=== PATIENT | female | born 1980 | race Asian ===

== ENCOUNTER 2025-02-13 06:14 | Outpatient (REF) | payer OTHER, SELFPAY ==
--- OUTSIDE RECORDS SUMMARY | 2025-02-13 06:19 | XMS_ITS | Clinical Summary ---
Author Organization [facility] [address] [place] [address] [place] [phone] Phone Care Team Providers Care Deli Clerk Name Role Phone Faustino Navarro MD Primary Care Provider Medications cyclobenzaprin e (FLEXERIL) 10 mg tablet Take 0.5-1 Tablets by mouth 2 times daily as needed for Muscle spasms. Medication may cause drowsiness, do not drive/operate machinery while taking 4 Active cholecalcifero l (VITAMIN D-3) 50 mcg (2,000 unit) tablet Take 1 Tablet by mouth daily. 4 Active hydrOXYzine HCL (ATARAX) 10 mg tablet Take 1 tablet (10 mg total) by mouth every 6 (six) hours if needed for itching. 90 tablet 1 5 Active vitamin () iron fum-folic acid 28-0.8 mg per tablet Take 1 tablet by mouth 1 (one) time each day. 90 tablet 2 5 Active LORazepam (ATIVAN) 0.5 mg tablet Take 1 tablet (0.5 mg total) by mouth every 8 (eight) hours if needed for anxiety. for anxiety Max Daily Amount: 1.5 mg 20 tablet 5 Active hydrOXYzine HCL (ATARAX) 10 mg tablet Take 0.5 Tablets by mouth daily as needed for Itching. 4 02/05/20 25 Discontinu ed(Reorder ) PNV no.95/ferrous fum/folic ac ( ORAL) VIT-FE FUMARATE-FA ( VITAMINS) 28-0.8 MG TAB Take 1 Tablet by mouth daily. 4 02/05/20 25 Discontinu ed(Alterna te therapy) LORazepam (ATIVAN) 0.5 mg tablet Take 1 Tablet by mouth every 8 hours as needed for Anxiety. 4 02/05/20 25 Discontinu ed(Reorder ) cetirizine (ZyrTEC) 10 mg tablet Take 1 Tablet by mouth daily. 3 02/05/20 25 Discontinu ed(Therapy completed) Active Problems Problem Noted Date Diagnosed Date Dermatitis 02/04/2025 Mixed hyperlipidemia 02/04/2025 Anxiety 12/26/2022 Encounters Date Type Department Care Team Description 02/04/2025 8:30 AM EDT Office Visit Adult Medicine [address] [phone] Kaur Sewell PA Adult general medical examination (Primary Dx); Encounter for screening mammogram for malignant neoplasm of breast; Anxiety; Mixed hyperlipidemia; Dermatitis from Last 3 Months Immunizations Name Administration Dates Next Due Hepatitis A Adult (Havrix; V aqta) 19yo and older 02/05/2015,10/30/2009 Pfizer SARS-CoV-2 COVID-19, mRNA, LNP-S, preservative free 09/17/2021,11/26/2020,11/03/2020 Tdap Tetanus diptheria acell ular pertussis (Boostrix; Adacel) 7yo and older 10/30/2012 Typhoid VICPS (Typhim Vi) 2yo and older 02/10/20 15 Yellow Fever (YF-VAX) 9mo and older 02/09/2015 Surgical History Surgery Date Site/Laterality Comments OTHER SURGICAL HISTORY PROCEDURE: DENIES PREVIOUS SURGERY Family History Medical History Relation Name Comments Hypertension Father Alzheimer's disease Maternal Grandmother Breast cancer Neg Hx Colon cancer Neg Hx Ovarian cancer Neg Hx Uterine cancer Neg Hx Relation Name Status Comments Father Alive HTN Maternal Grandfather Maternal Grandmother Mother Alive healthy, [facility] Paternal Grandfather Paternal Grandmother Social History Tobacco Use Types Packs/Day Years Used Date Smoking Tobacco: Never Smokeless Tobacco: Never Alcohol Use Standard Drinks/Week Comments Not Currently 0 (1 standard drink = 0.6 oz pur e alcohol) Housing Instability Answer Date Recorde d Are you worried that in the next 2 months you may not have stable housing? No 01/28/2025 Food Access & Nutrition Answer Date Rec orded Do you have access to a vari ety of food including fruits and vegetables? Yes 01/28/2025 Health Literacy Answer Date Recorded How often do you need to hav e someone help you when you read instructions, pamphlets, or other written material from your doctor or pharmacy? Never 01/28/2025 Caregiver: How often do you need to have someone help you when you read instructions, pamphlets, or other written material from your doctor or pharmacy? Not on file 01/28/2025 Financial Risk Answer Date Recorded How hard is it for you to pa y for the very basics like food, housing, medical care, and air conditioning / heating? Not very hard 01/28/2025 Transportation Answer Date Recorded Has the lack of transportati on kept you from meetings, work, or from getting things needed for daily living? No Has the lack of transportati on kept you from medical appointments or from getting medications? No 01/28/2025 Social Isolation Answer Date Recorded How often do you feel lonely or isolated from th ose around you? Never 01/28/2025 Food Risk Answer Date Recorded Within the past 12 months we worried whether our food would run out before we got money to buy more. Never true 01/28/2025 Within the past 12 months th e food we bought just didn't last and we didn't have money to get more. Never true 01/28/2025 Dependent Care Answer Date Recorded Do you need help finding or paying for care for your loved ones. For example, children's ministries director or elderly care for an older adult? No 01/28/2025 Education Answer Date Recorded Do you think completing more education or training, like finishing a GED, going to college, or learning a trade, would be helpful for you? N/A 01/28/2025 Employment and Income Answer Date Recor ded During the last four weeks, have you been actively looking for work? No 01/28/2025 Living Situation Answer Date Recorded What is your living situation? 0 01/28/2025 Comments Unknown Sex and Gender Information Value Date Recorded Sex Assigned at Not on file Legal Sex Female 1:43 AM EST Gender Identity Not on file Sexual Orientation Not on file Obstetrics History Last Filed Vital Signs Vital Sign Reading Time Taken Comments Blood Pressure 102/73 02/04/2025 8:34 AM EDT Pulse 80 02/04/2025 8:34 AM EDT Temperature 36.6 ??C (97.9 ??F) 02/04/2025 8:34 AM ED T Respiratory Rate 16 02/04/2025 8:34 AM EDT Oxygen Saturation - - Inhaled Oxygen Concentration - - Weight 53.1 kg (117 lb) 02/04/2025 8:34 AM EDT Height 152.4 cm (5') 02/04/2025 8:34 AM EDT Body Mass Index 22.85 02/04/2025 8:34 AM EDT Plan of Treatment Upcoming Encounters Date Type Department Care Team (Late st Contact Info) Description 02/09/2026 8:30 AM EDT Office Visit Adult Medicine [facility] [address] [place] [phone] Kaur Sewell PA [address] [place] [phone] Health Maintenance Due Date Last Done Comments Breast Cancer Screening 1981 Hepatitis B Vaccines (1 of 3 - 19+ 3-dose series) 2000 COVID-19 Vaccine ( season) 2024 10/05/2023, 01/30/2023, 09/17/2021, Additional history exists Cervical Cancer Screening: HPV 08/08/2024 08/08/2019 Influenza Vaccine (Season Ended) 2025 05/27/2015, 06/24/2013 Depression Screening 01/28/2026 01/28/2025 Social Influencers of Health Screening 01/28/2026 01/28/2025 Cholesterol Screening (Lipid Panel) 01/28/2029 01/29/2024 DTaP,Tdap,and Td Vaccines (4 - Td or Tdap) 08/01/2033 08/01/2023, 07/03/2013, 10/30/2012 Varicella Vaccines Aged Out 10/21/2008, 09/01/2008 No longer eligible based on patient's age to complete this topic Hepatitis A Vaccines Aged Out 02/05/2015, 10/30/19 10 No longer eligible based on patient's age to complete this topic HIB Vaccines Aged Out No longer eligi ble based on patient's age to complete this topic HIV Screening Discontinued HPV Vaccines Aged Out No longer eligi ble based on patient's age to complete this topic Hepatitis C Screening Discontinued IPV Vaccines Aged Out No longer eligi ble based on patient's age to complete this topic MMR Vaccines Aged Out No longer eligi ble based on patient's age to complete this topic Meningococcal ACWY Vaccine Aged Out N o longer eligible based on patient's age to complete this topic Meningococcal B Vaccine Aged Out No l onger eligible based on patient's age to complete this topic Pneumococcal Vaccine: Pediatrics (0 to 5 Years) and At-Risk Patients (6 to 64 Years) Aged Out No longer eligible based on patient's age to complete this topic RSV Immunization Patients Under 20 months Aged Out No longer eligible based on patient's age to complete this topic Procedures Procedure Name Priority Date/Time Associated Diagnosis Comments LIPID PANEL Routine 01/29/2024 HPV Routine 08/08/2019 from Last 3 Months or Most Recently Relevant to Health Maintenance Results * (ABNORMAL) Lipid panel (01/29/2024) LDL/HDL Ratio 4 0 - 4 Triglycerides 81 0 - 150 mg/dL Cholesterol 224(A) 0 - 200 mg/dL HDL 65 >=40 mg/dL LDL Cholesterol 143(A) 0 - 100 mg/dL Blood Venous blood specimen / Unknown Historical Provider LAB BLOOD ORDERABLES Vanessa l Result * Cervical Cancer Screening: HPV (08/08/2019) Pathologist Count includes the [facility] Cervical Cancer Screening: HPV abstracted, negative Historical Provider HEALTH MAINTENANCE Final Result from Last 3 Months or Most Recently Relevant to Health Maintenance Insurance [employer] [facility] Care Teams Deli Clerk Relationship Specialty Start Date End Date Faustino Navarro MD [address] [place] [address] PCP - General Internal Medicine 03/07/22
[2025-02-13 06:35] LABS: MANUAL DIFF FLAG NO
[2025-02-13 07:54] LABS: Basophils Percent Auto 0.3 % (0-2); Eosinophils Absolute Auto 0.1 X10*3/uL (0.0-0.4); Eosinophils Percent Auto 0.9 % (0-4); Hematocrit 36.3 % (37.0-47.0); Hemoglobin 11.9 g/dl (12.0-16.0); Imm Gran Abs Auto 0.03 X10*3/uL (0.00-0.03); Imm Gran Pct Auto 0.4 % (0.0-0.4); Lymphocytes Absolute Auto 1.7 X10*3/uL (1.2-4.9); Lymphocytes Percent Auto 21.3 % (20-40); Mean Corpuscular HGB Conc 32.8 g/dl (31.0-35.0); Mean Corpuscular Hemoglobin 31.1 pg (27.0-33.0); Mean Corpuscular Volume 94.8 fL (80.0-98.0); Mean Platelet Volume 8.4 fL (9.4-12.3); Monocytes Absolute Auto 0.5 X10*3/uL (0.1-1.2); Monocytes Percent Auto 6.1 % (2-11); Neutrophils Absolute Auto 5.7 x10*3/uL (2.0-8.3); Platelet Count 297 X10*3/uL (160-400); Red Blood Count 3.83 X10*6/uL (4.20-5.50); Red Cell Distribution Width 13.1 % (11.0-16.0)
[2025-02-13 09:08] LABS: Alanine Aminotransferase 10 U/L (0-31); Albumin Level 3.8 g/dL (3.5-5.0); Alkaline Phosphatase 53 U/L (39-117); Anion Gap 10 (12-20); Aspartate Amino Transferase 17 U/L (5-31); Bilirubin Total 0.2 mg/dL (0.0-1.0); Blood Urea Nitrogen 16 mg/dL (9-16); Carbon Dioxide 25 mmol/L (22-29); Chloride 109 mmol/L (96-108); Cholesterol 193 mg/dL (<200); Estimated Glomerular Filt Rate > 60; Glucose Random 89 mg/dL (60-115); HDL Cholesterol 53 mg/dL (>40); LDL Cholesterol Calculated 130 mg/dL (<100); Potassium 4.4 mmol/L (3.3-5.1); Sodium 140 mmol/L (135-145); Total Protein 6.7 g/dL (6.5-8.0); Triglycerides 53 mg/dL (<150)
[2025-02-13 11:42] LABS: Reflex LDLD? No
== END 2025-02-13 06:15 | disposition home or self-care (01) ==
LOC: HO.LAB 06:14
PROVIDERS: PCP Physician Assistant; Visit Provider Physician Assistant
DX: Z00.00 Encounter for general adult medical examination without abnormal findings (principal); E78.2 Mixed hyperlipidemia
CPT/HCPCS: 36415; 80053; 80061; 85025

== ENCOUNTER 2025-02-28 12:20 | Outpatient (REF) | payer OTHER, SELFPAY ==
[2025-02-28 12:32] LABS: MANUAL DIFF FLAG NO
--- OUTSIDE RECORDS SUMMARY | 2025-02-28 12:57 | XMS_ITS | Clinical Summary ---
Author Organization [facility] [address] [place] [address] [place] [phone] Phone Care Team Providers Care Fence Repairman Name Role Phone Faustino Navarro MD Primary [...] 1 Tablet by mouth daily. 4 02/05/20 Discontinu ed(Alterna te therapy) LORazepam (ATIVAN) 0.5 mg tablet Take 1 Tablet by mouth every 8 hours as needed for Anxiety. 4 02/05/20 Discontinu ed(Reorder ) cetirizine (ZyrTEC) 10 mg tablet Take 1 Tablet by mouth daily. 3 02/05/20 Discontinu ed(Therapy completed) Active Problems Problem Noted Date Diagnosed Date Dermatitis 02/04/2025 Mixed hyperlipidemia 02/04/2025 Anxiety 12/26/2022 Encounters Date Type Department Care Team Description 02/21/2025 Telephone Adult Medicine [address] [phone] Magaly Noyola MA lab orders 02/04/2025 8:30 AM EDT Office Visit Adult Medicine [address] [phone] Kaur Sewell PA Adult general medical examination (Primary Dx); Encounter for screening mammogram for malignant neoplasm of breast; Anxiety; Mixed hyperlipidemia; Dermatitis from Last 3 Months Immunizations Name Administration Dates Next Due Hepatitis A Adult (Havrix; V aqta) 19yo and older 02/05/2015,10/30/2009 [employer] SARS-CoV-2 COVID-19, mRNA, LNP-S, preservative free 09/17/2021,11/26/2020,11/03/2020 [...] care for your loved ones. For example, child and youth program assistant or elderly care for an older adult? [...] 8:30 AM EDT Office Visit Adult Medicine [address] [phone] Kaur Sewell PA [address] [place] [phone] Health Maintenance Due Date Last Done Comments [...] Procedure Name Priority Date/Time Associated Diagnosis Comments EXTERNAL CLINICAL LAB 02/13/2025 LIPID PANEL Routine 01/29/2024 HM HPV Routine 08/08/2019 from Last 3 Months or Most Recently Relevant to Health Maintenance Results * External clinical lab (02/13/2025) us Provider [facility] LAB BLOOD ORDERABLES Fin al Result * (ABNORMAL) Lipid panel (01/29/2024) LDL/HDL Ratio 4 0 - 4 Triglycerides 81 0 - 150 mg/dL Cholesterol 224(A) 0 - 200 mg/dL HDL 65 >=40 mg/dL LDL Cholesterol 143(A) 0 - 100 mg/dL Blood Venous blood specimen / Unknown Historical Provider LAB BLOOD ORDERABLES Vanessa l Result * Cervical Cancer Screening: HPV (08/08/2019) Cervical Cancer Screening: HPV abstracted, negative Historical Provider HEALTH MAINTENANCE Final Result from Last 3 Months or Most Recently Relevant to Health Maintenance Insurance [employer] [facility] Care Teams Fence Repairman Relationship Specialty Start Date End Date Faustino Navarro MD [address] [place] [address] PCP - General Internal Medicine 03/07/22
[2025-02-28 13:41] LABS: Basophils Percent Auto 0.2 % (0-2); Eosinophils Percent Auto 0.7 % (0-4); Hematocrit 38.5 % (37.0-47.0); Hemoglobin 12.4 g/dl (12.0-16.0); Imm Gran Abs Auto 0.02 X10*3/uL (0.00-0.03); Imm Gran Pct Auto 0.3 % (0.0-0.4); Lymphocytes Absolute Auto 2.2 X10*3/uL (1.2-4.9); Lymphocytes Percent Auto 35.5 % (20-40); Mean Corpuscular HGB Conc 32.2 g/dl (31.0-35.0); Mean Corpuscular Hemoglobin 30.6 pg (27.0-33.0); Mean Corpuscular Volume 95.1 fL (80.0-98.0); Mean Platelet Volume 8.3 fL (9.4-12.3); Monocytes Absolute Auto 0.4 X10*3/uL (0.1-1.2); Monocytes Percent Auto 6.1 % (2-11); Neutrophils Absolute Auto 3.5 x10*3/uL (2.0-8.3); Neutrophils Percent Auto 57.2 % (45-73); Platelet Count 362 X10*3/uL (160-400); Red Blood Count 4.05 X10*6/uL (4.20-5.50); Red Cell Distribution Width 13.2 % (11.0-16.0); White Blood Count 6.1 X10*3/uL (4.8-10.8)
[2025-02-28 14:11] LABS: Iron 114 mcg/dL (30-160); Percent Iron Saturation 32 % (15-50); Total Iron Binding Capacity 359 mcg/dL (228-428); Unsaturated Iron Binding 245 ug/dL
[2025-02-28 14:29] LABS: Ferritin 12 ng/mL (10-250)
[2025-02-28 14:38] LABS: Folate 9.9 ng/mL (> or = 4.0); Vitamin B12 446 pg/mL (200-900)
== END 2025-02-28 12:21 | disposition home or self-care (01) ==
LOC: HO.LAB 12:20
PROVIDERS: PCP Physician Assistant; Visit Provider Physician Assistant
DX: D64.9 Anemia, unspecified (principal)
CPT/HCPCS: 36415; 82607; 82728; 82746; 83540; 85025

== ENCOUNTER 2025-09-18 13:53 | Outpatient (REF) | payer OTHER, SELFPAY ==
--- OUTSIDE RECORDS SUMMARY | 2025-09-11 04:00 | XMS_ITS ---
Author Organization [employer] [facility] Address [address] [place] [address] Care Team Providers Care Copyholder Name Role Phone JASON SUAREZ Primary Care Provider Mary Ha Unavailable [phone] Allergies No Known Allergies Results Component Value Reference Range Notes Urinalysis Reviewed date:09/11/2025 10:23:10 AM Interpretation: Performing Lab: Notes/Report: PH 7 PROTEIN TRACE GLUCOSE NEG BLOOD MOD [id number] IGP No Culture 30 Plus Reviewed date:09/15/2025 02:58:19 PM Interpretation: Performing Lab:[facility] [place], [address], [address], [place], Phone - [phone], Director - [facility] Notes/Report: Clinical Information:CERV/VAG [id number] LMP / Prev Treat...[id number] Dates / Results....2018 No. of containers..01 ThinPrep Vial DIAGNOSIS: NEGATIVE FOR IN TRAEPITHELIAL LESION OR MALIGNANCY. Specimen adequacy: Satisfactory for evaluation. Endocervical and/or squamous metaplastic cells (endocervical component) are present. Clinician provided ICD10: Z01.419 Z11.51 Performed by: Jenae zapien, Azure Architect (ASCP) . . Note: The Pap smear is a screening test designed to aid in the detection of premalignant and malignant conditions of the uterine cervix. It is not a diagnostic procedure and should not be used as the sole means of detecting cervical cancer. Both false-positive and false-negative reports do occur. . Test Methodology: This liquid based ThinPrep(R) pap test was screened with the use of an image guided system. HPV Aptima Negative Negative This nucleic acid amplification test detects fourteen high-risk HPV types (16,18,31,33,35,39,45,51,52,56,5 8,59,66,68) without differentiation. HPV Genotype Reflex Criteria not met, HPV Genotype not performed. PDF Report Reviewed date:09/15/2025 02:57:58 PM Interpretation: Performing Lab:[facility], [address], [address], [place], Phone - [phone], Director - [facility] Notes/Report: Clinical Information:CERV/VAG [id number] LMP / Prev Treat...[id number]=[id number] Dates / Results....2019 No. of containers..01 ThinPrep Vial REASON FOR VISIT Annual SOLAR LAB TECHNICIAN Physical, Annual SOLAR LAB TECHNICIAN Physical 40-49 Medications Medication SIG (Take, Route, Fr equency, Duration) Notes Start Date End Date Status hydrOXYzine HCl Acti ve Active Social History Tobacco Use: Social History Observation Description Date Details (start date - stop date) Never Smoker NA - NA Sexual History Question Answer Notes Had sex in the past 12 months (vaginal, oral, or anal)? Yes with Men only AUDIT-C (Standard) Question Answer Notes Did you have a drink containing alcohol in the p ast year? No Points 0 Interpretation Negative Tobacco Control (Standard) Question Answer Notes Tobacco use: Nonsmoker Problems Problem Type SNOMED Code ICD Code Onset Dates Problem Status W/U Status Risk Notes Problem Female infertility (8494668) Female infertility, unspecified (N97.9) Active confirmed Vital Signs Height 60 in 09/11/2025 Weight 113 lbs 09/11/2025 BMI 22.07 kg/m2 09/11/2025 Blood pressure systolic 102 mm Hg 09/11/20 25 Blood pressure diastolic 70 mm Hg 025 Temperature 97.1 degrees Fahrenheit 09/11/20 25 Encounters Encounter Location Date Provider Diagnosis [facility] [address] [place] [address] 09/11/2025 Mary Caraballo Encounter for gynecological examination (general) (routine) without abnormal findings Z01.419 ; Encounter for screening for human papillomavirus (HPV) Z11.51 ; Encounter for screening mammogram for malignant neoplasm of breast Z12.31 ; Female infertility, unspecified N97.9 and Hematuria, unspecified R31.9 Assessments Encounter Date Diagnosis (ICD Code) Assessment Notes Treatment Notes Treatment Clinical Notes Section Notes 09/11/2025 Encounter for gynecological examination (general) (routine) without abnormal findings (ICD-10 - Z01.419) PAP TEST WAS OBTAINED. 09/11/2025 Encounter for screening for human papillomavirus (HPV) (ICD-10 - Z11.51) HPV TYPING WAS ORDERED WITH PAP TEST. 09/11/2025 Encounter for screening mammogram for malignant neoplasm of breast (ICD-10 - Z12.31) REGULAR MAMMOGRAMS AND SBE'S WERE RECOMMENDED. 09/11/2025 Female infertility, unspecified (ICD-10 - N97.9) DISCUSSED BASIC INFERTILITY EVALUATION. RECOMMENDED REFERRAL TO [facility]. 09/11/2025 Hematuria, unspecified (ICD-10 - R31.9) DISCUSSED FINDINGS ON OFFICE UA. OFFICIAL UA AND URINE C/S WERE ORDERED. Plan Of Treatment Treatment Notes Assessment Notes Encounter for gynecological examination (general) (routine) without abnormal findings PAP TEST WAS OBTAINED. Encounter for screening for human papillomavirus (HPV) HPV TYPING WAS ORDERED WITH PAP TEST. Encounter for screening mamm ogram for malignant neoplasm of breast REGULAR MAMMOGRAMS AND SBE'S WERE RECOMMENDED. Female infertility, unspecified DISCUSSED BASIC INFERTILITY EVALUATION. RECOMMENDED REFERRAL TO [facility]. Hematuria, unspecified DISCUSSED FINDINGS ON OFFICE UA. OFFICIAL UA AND URINE C/S WERE ORDERED. Pending Test Test Name Order Date MM Digital Mammo Screening 09/11/2025 Next Appt Details Follow Up: 1 Year, Reason: Provider Name:Mary blake, 09/17/2026 09:20:00 AM, [address] [place] [address], [facility] [address], [place], [address], Progress Notes * SADE MARTINEZDOB:[birth year] (44 yo F)Acc No.[id number]:09/11/2025 Progress Note Patient: SADE LEBLANC Appointment Provider: Heriberto Caraballo M.D. :1980 A ge:44 Y S ex:Female Date:09/11/2025 Address:[address] [place], [place] [id number] Pcp:JASON SUAREZ Subjective: * Chief Complaints: * 1 . Annual SOLAR LAB TECHNICIAN Physical. 2. Annual SOLAR LAB TECHNICIAN Physical 40-49. * HPI: N ew/Follow-up Patient Consult: TIERA IS NEW TO OUR OFFICE. 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 SHE HAD BEEN ON OCP'S SINCE AGE 21 UNTIL 3 YEARS AGO WHEN THEY DECIDED TO START WORKING ON A WITH NO SUCCESS. NEITHER SHE OR HER PARTNER HAVE HAD ANY CHILDREN FROM ANY PREVIOUS RELATIONSHIPS. HER PARTNER IS HER AGE. SHE DENIES ANY SIGNIFICANT MEDICAL ISSUES. SHE HAS REGULAR MENSES WITHOUT DYSMENORRHEA. SHE IS READY TO BE REFERRED TO INFERTILITY EXPERTS. HER LAST PAP TEST OBTAINED IN 2019 WAS NEGATIVE AND HPV NEGATIVE. SHE HAS NO HX OF ABNORMAL PAP TESTS. HEMATURIA WAS NOTED ON OFFICE UA. SHE IS ASYMPTOMATIC. A nnual: Patient presents for annual exam, ages 40-49. General Health Maintenance: C urrent breast complaints: n o breast pain, mass, discharge, or skin changes U rinary problems: p atient reports no urinary health problems or bowel health problems C alcium intake: t akes adequate calcium via diet and supplementation S ignificant SOLAR LAB TECHNICIAN problems: n o significant quarter inspector symptoms or problems * ROS: g eneral: no c hest pain. n o p alpitations. n o h eadache. n o c ough. n o s hortness of breath. n o f ever. n o u nexplained weight loss. n o n ausea/vomiting. n o c hange in bowel movements. n o blood in stool. n o g enitourinary complaints. n o s kin complaints. ? * Medical History: M edical History Verified. * Filling Hauler History: G ravida/ Para 0 /0. S exual activity c urrently sexually active, with men. L ast Pap Smear: 2 019. A bnormal Pap Smear: N ONE. L MP and menses 1 . M enarche 1 5. * Family History: M other: alive. F ather: alive. * Social History: T obacco Use: T obacco Control (Standard) T obacco use: N onsmoker S exual History: S exual History H ad sex in the past 12 months (vaginal, oral, or anal)? Y es w ith M en only Sexual Abuse H istory: n one D rugs/Alcohol: D rugs H ave you used drugs other than those for medical reasons in the past 12 months? N o Caffeine I ntake: 1 -2 cups per day M iscellaneous: C affeine: 1-2 cups per day. Children: none. Exercise: ROWING, WALKING. Living with: significant other. Marital status: single. Occupation: PHARMACICT. Sexual abuse: none. Sexually active: monogamous relationship. H ousehold: H ousehold M arital status: s monster D rug/Alcohol: A PATRICE-C (Standard) D id you have a drink containing alcohol in the past year? N o P oints 0 I nterpretation N egative * Medications: T aking hydrOXYzine HCl , Taking , Medication List reviewed and reconciled with the patient * Allergies: N .K.D.A. Objective: * Vitals: H t: 60 in, Wt:113lbs, BMI:22.07Index, BP:102/70mm Hg, Temp:97.1F. * Examination: G eneral Exam: CONSTITUTIONAL: G eneral Appearance: a lert, in no acute distress, normal, well nourished NECK/THYROID: I nspection/Palpation: n ormal T hyroid: n ormal size and shape RESPIRATORY: A uscultation: clear to auscultation bilaterally, Respiratory Effort: normal. CARDIOVASCULAR: A uscultation: regular rate and rhythm.? BREAST, Right: I nspection/Palpation: n o discharge, no masses present, no nipple retraction, no skin changes, no skin dimpling, no tenderness, no lymphadenopathy, no axillary mass, no axillary tenderness BREAST, Left: I nspection/Palpation: n o discharge, no masses present, no nipple retraction, no skin changes, no skin dimpling, no tenderness, no lymphadenopathy, no axillary mass, no axillary tenderness GASTROINTESTINAL: A bdomen: n o masses, nontender, nondistended L iver and Spleen: n ormal H ernias: n o hernias present, no inguinal adenopathy MUSCULOSKELETAL: I nspection/Palpation: n o clubbing, cyanosis, or edema SKIN: S kin: n ormal NEURO/PSYCH: O rientation: t tisha , place, person M ood/Affect: n ormal G enitourinary: EXTERNAL GENITALIA: E xternal Genitalia: n ormal, no lesions VAGINA: V agina: n ormal appearance, no abnormal discharge, no lesions BLADDER: B ladder: n o mass, nontender URETHRA: U rethra: n o erythema or lesions present CERVIX: C ervix: n o lesions, nontender UTERUS: U terus: n ontender, normal contour, normal mobility, normal size ADNEXA: A dnexa: n o masses, no tenderness ANUS AND PERINEUM: A nus/Perineum: v isually normal Assessment: * Assessment: 1. E ncounter for gynecological examination (general) (routine) without abnormal findings - Z01.419 (Primary) 2 . E ncounter for screening for human papillomavirus (HPV) - Z11.51 3 . E ncounter for screening mammogram for malignant neoplasm of breast - Z12.31 4 . F emale infertility, unspecified - N97.9 5 . H ematuria, unspecified - R31.9 Plan: * Treatment: Value Reference Range P H 7 * P ROTEIN TRACE * G LUCOSE NEG * B LOOD MOD * Mary Caraballo 09/11/20 25 10:22:36 AM EST >OFFICIAL UA AND URINE C/S WERE ORDERED. CALLED TIERA MYSELF. LAB SLIP WILL BE SENT TO [facility] WHERE TIERA IS A PHARMACIST. ?LAB: [id number] IGP No Culture 30 Plus (Collection Date & Time - 09/11/2025)* Value Reference Range . . - * H PV Aptima Negative Negative - * CERV/VAG Notes: PAP TEST WAS OBTAINED.??2.?Encounter for screening for human papillomavirus (HPV)?LAB: [id number] IGP No Culture 30 Plus (Collection Date & Time - 09/11/2025)* Value Reference Range . . - * H PV Aptima Negative Negative - * CERV/VAG Notes: HPV TYPING WAS ORDERED WITH PAP TEST.??3.?Encounter for screening mammogram for malignant neoplasm of breast?Imaging: MM Digital Mammo Screening Notes: REGULAR MAMMOGRAMS AND SBE'S WERE RECOMMENDED.??4.?Female infertility, unspecified? Notes: DISCUSSED BASIC INFERTILITY EVALUATION. RECOMMENDED REFERRAL TO [facility].??5.?Hematuria, unspecified? Notes: DISCUSSED FINDINGS ON OFFICE UA. OFFICIAL UA AND URINE C/S WERE ORDERED.?? * Labs: * L ab: PDF Report (Collection Date & Time - 09/11/2025) * Procedure Codes: 9 9459 PELVIC EXAMINATION * Preventive Medicine: YOUR PREVENTIVE WELLNESS PLAN: O steoporosis prevention C alcium, D, strength training. B reast Cancer Screening (Mammogram): a nnually. C ervical Cancer Screening (Pap Smear): q 3 years with HPV screen. C olorectal Cancer Screening: q 10 years. * Follow Up: 1 Year * Images: Billing Information: * Visit Code: 32288 Preventive Care New Pt. Age 40-64. * Procedure Codes: 01508 PELVIC EXAMINATION. * Electronic signature of Alf Caraballo MD on 09/18/2025 at 07:20 PM EST Sign off status: Pending * Appointment Provider: Heriberto Caraballo M.D. Date: 11/11/2024 Generated for Taylor torrez/Divya/Mayuriitting on: 11/18/2024 07:20 PM EST History and Physical Notes * HPI (History of Present Illness) Category Sub-Category Detail Notes Category Not es New/Follow-up Patient Consult PAT IS NEW TO OUR OFFICE. 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 SHE HAD BEEN ON OCP'S SINCE AGE 21 UNTIL 3 YEARS AGO WHEN THEY DECIDED TO START WORKING ON A WITH NO SUCCESS. NEITHER SHE OR HER PARTNER HAVE HAD ANY CHILDREN FROM ANY PREVIOUS RELATIONSHIPS. HER PARTNER IS HER AGE. SHE DENIES ANY SIGNIFICANT MEDICAL ISSUES. SHE HAS REGULAR MENSES WITHOUT DYSMENORRHEA. SHE IS READY TO BE REFERRED TO INFERTILITY EXPERTS. HER LAST PAP TEST OBTAINED IN 2019 WAS NEGATIVE AND HPV NEGATIVE. SHE HAS NO HX OF ABNORMAL PAP TESTS. HEMATURIA WAS NOTED ON OFFICE UA. SHE IS ASYMPTOMATIC. Annual General Health Maintenance: Current breast complaints:: no breast pain, mass, discharge, or skin changes Urinary problems:: patient r eports no urinary health problems or bowel health problems Calcium intake:: takes adequ ate calcium via diet and supplementation Significant SOLAR LAB TECHNICIAN problems:: n o significant quarter inspector symptoms or problems Examination Category Sub-Category Detail Notes Category Not es General Exam CONSTITUTIONAL: General Appearan ce:: alert, in no acute distress, normal, well nourished NECK/THYROID: Inspection/Palpation:: normal Thyroid:: normal size and shape RESPIRATORY: Auscultation: clear to auscultation bilaterally, Respiratory Effort: normal CARDIOVASCULAR: Auscultation: regula r rate and rhythm GASTROINTESTINAL: Abdomen:: no masses, nontender , nondistended Liver and Spleen:: normal Hernias:: no hernias present, no inguina l adenopathy MUSCULOSKELETAL: Inspection/Palpation:: no clubb ing, cyanosis, or edema SKIN: Skin:: normal NEURO/PSYCH: Orientation:: time , place, pers on Mood/Affect:: normal BREAST, Right: Inspection/Palpation :: no discharge, no masses present, no nipple retraction, no skin changes, no skin dimpling, no tenderness, no lymphadenopathy, no axillary mass, no axillary tenderness BREAST, Left: Inspection/Palpation :: no discharge, no masses present, no nipple retraction, no skin changes, no skin dimpling, no tenderness, no lymphadenopathy, no axillary mass, no axillary tenderness Genitourinary EXTERNAL GENITALIA: External Genitalia:: nor mal, no lesions VAGINA: Vagina:: normal appearance, no a bnormal discharge, no lesions BLADDER: Bladder:: no mass, nontender URETHRA: Urethra:: no erythema or lesions present CERVIX: Cervix:: no lesions, nontender UTERUS: Uterus:: nontender, normal conto ur, normal mobility, normal size ADNEXA: Adnexa:: no masses, no tendernes s ANUS AND PERINEUM: Anus/Perineum:: visually norm al
[2025-09-18 14:53] LABS: Appearance Urine Clear; Glucose Urine UA Negative (Negative); PH 5.5 (5.0-9.0); Specific Gravity - Urine 1.025 (1.005-1.025); UMIC TRIGGER UA YES
--- OUTSIDE RECORDS SUMMARY | 2025-09-18 19:20 | XMS_ITS | Patient Health Record ---
Author Organization [employer] [facility] Address [address] [place] [address] Care Team Providers Care Sap Technical Developer Name Role Phone JASON SUAREZ Primary Care Provider Mehran germania CaraballoMary freitas Unavailable [phone] Allergies No Known Allergies Results Component Value Reference Range Notes Urinalysis Reviewed date:09/11/2025 10:23:10 AM Interpretation: Performing Lab: Notes/Report: PH 7 PROTEIN TRACE GLUCOSE NEG BLOOD MOD [id number] IGP No Culture 30 Plus Reviewed date:09/15/2025 02:58:19 PM Interpretation: Performing Lab:[facility] [place], [address], [address], [place], Phone - [phone], Director - [facility] Notes/Report: Clinical Information:CERV/VAG [id number] LMP / Prev Treat...[id number]=[id number] Dates / Results....2019 No. of containers..01 ThinPrep Vial DIAGNOSIS: NEGATIVE FOR IN TRAEPITHELIAL LESION OR MALIGNANCY. Specimen adequacy: Satisfactory for evaluation. Endocervical and/or squamous metaplastic cells (endocervical component) are present. Clinician provided ICD10: Z01.419 Z11.51 Performed by: Jenae zapien, Cinder Worker (ASCP) . . Note: The Pap smear [...] Report Reviewed date:09/15/2025 02:57:58 PM Interpretation: Performing Lab:[facility], [address], [address], [place], Phone - [phone], Director - [facility] Notes/Report: Clinical Information:CERV/VAG [id number] LMP / Prev Treat...[id number]=[id number] Dates / Results....2019 No. of containers..01 ThinPrep Vial Reason For Referral No Information Medications Medication SIG (Take, Route, Fr equency, [...] W/U Status Risk Notes Problem Female infertility (9051957) Female infertility, unspecified (N97.9) Active confirmed Vital Signs Temperature 97.1 degrees Fahrenheit 09/11/2025 Blood pressure diastolic 70 mm Hg 09/11/2025 Height 60 in 09/11/2025 Blood pressure systolic 102 mm Hg 09/11/2025 Weight 113 lbs 09/11/2025 BMI 22.07 kg/m2 09/11/2025 Encounters Encounter Location Date Provider Diagnosis [facility] [address] [place] [address] 09/11/2025 Mary Caraballo Encounter for gynecological examination (general) (routine) without abnormal findings Z01.419 ; Encounter for screening for human papillomavirus (HPV) Z11.51 ; Encounter for screening mammogram for malignant neoplasm of breast Z12.31 ; Female infertility, unspecified N97.9 and Hematuria, unspecified R31.9 [facility] [address] [place] [address] 09/11/2025 Mary Caraballo Other microscopic hematuria R31.29 Assessments Encounter Date Diagnosis (ICD Code) Assessment Notes Treatment Notes Treatment Clinical Notes Section Notes 09/11/2025 Encounter for gynecological examination (general) (routine) without abnormal findings (ICD-10 - Z01.419) PAP TEST WAS OBTAINED. 09/11/2025 Encounter for screening for human papillomavirus (HPV) (ICD-10 - Z11.51) HPV TYPING WAS ORDERED WITH PAP TEST. 09/11/2025 Other microscopic hematuria (ICD-10 - R31.29) 09/11/2025 Encounter for screening mammogram for malignant neoplasm of breast (ICD-10 - Z12.31) REGULAR MAMMOGRAMS AND SBE'S WERE RECOMMENDED. 09/11/2025 Female infertility, unspecified (ICD-10 - N97.9) DISCUSSED BASIC INFERTILITY EVALUATION. RECOMMENDED REFERRAL TO [facility]. 09/11/2025 Hematuria, unspecified (ICD-10 - R31.9) DISCUSSED FINDINGS ON OFFICE UA. OFFICIAL UA AND URINE C/S WERE ORDERED. Plan Of Treatment Pending Test Test Name Order Date MM Digital Mammo Screening 09/11/2025 Urinalysis, Complete-[id number] 09/11/2025 Urine Culture, Routine-[id number] 09/11/2025 Next Appt Details Provider Name:Mary blake, 09/17/2026 09:20:00 AM, [address], [address], [place], [address], Insurance Providers Payer Name Payer Address Payer Phone Subscriber Number Group Number Insured Name Patient Relationship to Insured Coverage Start Date Coverage End Date [employer] S CECI NOVAK [address] [address] [place] [address] [id number] SADE MARTINEZ Self - patient is the insured
== END 2025-09-18 13:54 | disposition home or self-care (01) ==
LOC: HO.LAB 13:53
PROVIDERS: Visit Provider Obstetrics & Gynecology Gynecology
DX: R31.29 Other microscopic hematuria (principal)
CPT/HCPCS: 81001; 87086